=== PATIENT | male | born 1970 | race Caucasian/White ===

== ENCOUNTER → 2018-01-25 | Outpatient (CLI) | payer BC, OTHER ==
[~2018-01-25] VITALS: Ht 167.6 cm; Wt 86.2 kg
[~2018-01-25] MED LIST: ALEVE220 MG PO; AMITRIPTYLINE H25 M2 PO; APAP/CODEINE ELI5 M1 OR; CYMBALTA30 MG PO; IMITREX 50 MG T50 MG PO; LEVAQUIN 500 M500 MG PO; MOBIC15 MG PO; PERCOCET 10-321 EAC1 PO; PERCOCET 10-321 EACH PO; PERCOCET 2.5-31 EACH PO; THERA-M CAPLET1 EACH OR; ZOFRAN ODT4 MG PO; ZYRTEC10 M2 OR; ZYRTEC10 M5 PO
--- NOTE | ~2018-01-25 | HPC ---
[facility] [address] [place] [address] PAIN MANAGEMENT CONSULTATION Name: MELVINRANDALL Cherry Room #: REG [facility] Urmila#: [id number] Admission: 01/25/18 Attend Phys: Enrico Mcguire MD Discharge: Date of : 66 Report #: [id number] THIS REPORT FOR: //name// CC: Enrico Keyes DATE OF SERVICE: 01/25/2018 CHIEF COMPLAINT: Back pain. HISTORY OF PRESENT ILLNESS: The patient is a 47-year-old gentleman who has been referred to the pain clinic for evaluation. The patient has a history of back pain. States that he was injured in 2005. He fell off a horse. As a result of that, he had significant damage to the T12-L2 area of his back. He was seen by a neurosurgeon. He underwent stabilization of his spine. Does have a long incision on the left side. Notes that this area is very sensitive to touch. He was recently started on Cymbalta. He feels that medication has made some major improvement in his pain. He has required less opioid medication. He has been able to do more. States that often times when his pain is quite problematic those around him are able to see that he is in pain. He is less functional. He is a ____. He has difficulty sleeping. States that his sleep is limited. Generally sleeps about 2 hours before he is awakened because of the pain and discomfort. He has to sleep on his side. He is unable to sleep on his back. He continues to stretch and do activities as much as possible. ALLERGIES: No known drug allergies. MEDICATIONS: Zyrtec 10 mg, Percocet 10/325 approximately 1 p.o. t.i.d., Naprosyn 220 mg, Cymbalta 30 mg daily, and Imitrex 50 mg for migraine headaches. PAST MEDICAL HISTORY: Midline low back pain without sciatica. Persistent numbness in both legs and migraine headaches. PAST SURGICAL HISTORY: T12-L2 fusion through thoracolumbar approach in 2005 at Replaced by [facility]. The patient suffered a L1 burst fracture. REVIEW OF SYSTEMS: Generally good health, decreased appetite, fatigue, weakness, headaches, recurrent headaches, lightheadedness, dizziness, numbness and tingling sensation in the lateral area, where the incision is. LABORATORY DATA: No new laboratory values are available at the time of our interview. PAIN CLINIC ASSESSMENT/PQRS: 1. The patient has not been treated for rheumatoid arthritis or osteoarthritis. 2. Height 5 feet 6 inches, weight 190 pounds, BMI is 30.7. [place] [address] PAIN MANAGEMENT CONSULTATION Name: MELVINRANDALL Dilip Room #: REG [facility]#: [id number] Admission: 01/25/18 Attend Phys: Enrico Mcguire MD Discharge: Date of : 66 Report #: [id number] 3. Vital signs: Blood pressure 128/77, pulse 80, respiratory rate 16, room air saturation 98%. 4. Pain intensity, 8/10. 5. Fall risk. The patient has not fallen in the last 3 months. 6. Blood thinner. The patient is not on a blood thinning medication. 7. History of hypertension. The patient has not been treated for hypertension. 8. Opioid therapy. The patient has been using opioid medications for some time since the original injury in 2007. 9. Risk assessment tool, low for opioid use. 10. Functional assessment tool 59/70. 11. Recreational drug use. The patient denies use of recreational drugs. 12. Tobacco: The patient has never smoked. 13. Alcohol: The patient denies use of alcoholic beverages. PHYSICAL EXAMINATION: GENERAL: The patient is a well-developed, well-nourished white male. He appears his stated age. He is alert and oriented x 3. Affect is appropriate. Speech is fluent. HEENT: Normocephalic, atraumatic. Extraocular eye muscles intact. Sclerae nonicteric. Mucous membranes are moist. NECK: Without adenopathy or JVD. MUSCULOSKELETAL: Upper extremity muscle strength is judged to be 5/5 for the major muscle groups. Deep tendon reflexes +2 for the biceps, trace for the brachioradialis, and +1 for the triceps. The patient has a well-healed scar on the left side. Is hypersensitive to light touch. Lower extremity muscle strength is judged to be 5/5 for the major muscle groups in the lower extremity. The patient is able to stand on his toes and walk on his heels. Notes increased pain with left rotation, right rotation, forward bending to about 90 degrees, and lumbar extension. These can all increase the pain and discomfort in the left lower side. Deep tendon reflexes are +2 at the knees bilaterally and +1 at the ankles. IMPRESSION: 1. Chronic pain, left lateral thoracic area after a burst fracture at L1 and an incision along the left lateral thoracic/abdominal wall, which is hypersensitive to touch. 2. Midline low back pain without sciatica. 3. Persistent numbness in both legs. 4. Migraine headaches. RECOMMENDATIONS: We discussed treatment options with the patient. He feels that the use of Cymbalta over the last 2 weeks have been beneficial. We explained that Elavil medications can sometimes be helpful with neuropathic pain. The patient is having difficulty sleeping at night. We would recommend that he try 25 mg at bedtime to note its efficacy in promoting sleep as well as contributing to helping decrease the pain. The patient takes a nonsteroidal [facility] [address] [place] [address] PAIN MANAGEMENT CONSULTATION Name: RANDALL CHARLES Room #: REG [facility]#: [id number] Admission: 01/25/18 Attend Phys: Enrico Mcguire MD Discharge: Date of : 66 Report #: [id number] anti-inflammatory medication. I think he could glean benefit from using Mobic. This is a once a day medication. A script for this medication has been written. He will try these medications. He will return to the pain clinic as needed. A script for oxycodone 10 mg 1 p.o. t.i.d. have been written. We would like to thank you for letting us participate in his care. We hope he continues to improve. By: [id number] Enrico Mcguire MD /nt
[2018-01-25 08:32] VITALS: BP 128/77
== END ==
LOC: PAIN 06:58
DX: M54.5 Low back pain (principal); G89.29 Other chronic pain; R20.0 Anesthesia of skin; G43.909 Migraine, unspecified, not intractable, without status migrainosus

== ENCOUNTER → 2018-09-25 | Outpatient (CLI) | payer BC, OTHER ==
[~2018-09-25] VITALS: Ht 167.6 cm; Wt 82.6 kg
[2018-09-25 13:25] VITALS: BP 142/89
[2018-09-25 14:04] LABS: ABSOLUTE NEUTROPHILS 3.3 thou/uL (1.4-8.2); BASOPHILS 0.8 % (0.0-2.0); HEMATOCRIT 40.8 % (42.0-52.0); HEMOGLOBIN 13.8 gm/dL (14.0-18.0); MCH 28.2 pg (26.0-34.0); MCHC 33.7 g/dL (28.0-37.0); MCV 83.5 fL (80.0-100.0); MONOCYTES 9.1 % (1.0-8.0); PLATELET COUNT 144 thou/uL (150-400); POLYS 55.1 % (36.0-66.0); RBC 4.88 mil/uL (4.50-6.00); RDW 13.7 % (10.5-14.5); WBC 5.9 thou/uL (4.0-11.0)
[2018-09-25 14:16] LABS: ALBUMIN 3.8 g/dL (3.4-5.0); CREATININE 1.2 mg/dL (0.7-1.3); POTASSIUM 4.2 mmol/L (3.5-5.1); TOTAL BILIRUBIN 0.7 mg/dL (<0.1-1.0); TOTAL PROTEIN 7.3 g/dL (6.4-8.2)
--- NOTE | 2018-09-25 14:57 | NUR ---
IN FOR 1 LITER NORMAL SALINE IV FOR DEHYDRATION RELATED TO ONE WEEK OF NAUSEA AND VOMITING, REFRACTORY TO [facility]. CT SCAN OF ABD DONE AND THEN CAME HERE FOR INFUSION. ADMISSION HISTORY AND ASSESSMENT COMPLETED. INFUSED NS OVER 1 HOUR AND TOLERATED WELL. REMOVED IV AND DISMISSED IN STABLE CONDITION. FAXED LAB RESULTS TO DR. SEALS.
== END ==
LOC: CAT 11:02
PROVIDERS: Family Medicine
DX: E86.0 Dehydration (principal); R11.2 Nausea with vomiting, unspecified; R10.9 Unspecified abdominal pain

== ENCOUNTER → 2018-10-27 | Outpatient (CLI) | payer BC, OTHER ==
[~2018-10-27] VITALS: Ht 167.6 cm; Wt 85.8 kg
[~2018-10-27] MED LIST changes: +NEURONTIN 300300 M1 PO; +OXYCODONE HCL10 MG PO
--- NOTE | ~2018-10-27 | HPC ---
[facility] [address] [place] [address] PAIN MANAGEMENT CONSULTATION Name: RANDALL CHARLES Room #: REG [facility] Urmila#: [id number] Admission: 10/27/18 Attend Phys: Enrico Mcguire MD Discharge: Date of : 66 Report #: [id number] THIS REPORT FOR: //name// CC: Enrico Keyes DATE OF SERVICE: 10/27/2018 CHIEF COMPLAINT: Back pain. HISTORY: The patient is a 48-year-old gentleman, who has been followed in the pain clinic. 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 He was injured after falling off a horse in 2005. He ruptured/injured his L1 vertebrae. He has undergone surgery and had fusion of the thoracic area T12 through L2. This was because of a burst fracture at L1. He continues to work. Pain has increased. He has been using hydrocodone 10 mg tablets, needed to take about 8 tablets per day. He is having some difficulty with sleeping. He was reevaluated at [facility]. His surgeon does not feel that there is any need for additional surgery. CURRENT MEDICATIONS: Oxycodone 10/325 one p.o. q.4-6 hours, Zyrtec 10 mg daily, Naprosyn 220 mg, Cymbalta 30 mg to help with depression, and Imitrex 50 mg p.r.n. headaches. ALLERGIES: No known drug allergies. PAIN CLINIC ASSESSMENT AND PQRS: 1. The patient is not being treated for rheumatoid arthritis or osteoarthritis. 2. Pain intensity is 8/10. 3. Fall history: The patient has not fallen in the last 3 months. 4. Blood thinner. The patient is not on a blood thinning medication. 5. Hypertension. The patient ____ treated for hypertension. 6. Opioids. The patient receives medications through his primary physician. 7. Risk assessment tool, low for opioid use. 8. Functional assessment tool, 59/70. 9. Recreational drug use. The patient denies. 10. Tobacco: The patient has never smoked. 11. Alcohol: The patient denies use of alcoholic beverages. PHYSICAL EXAMINATION: GENERAL: The patient is a well-developed, well-nourished white male. He appears his stated age. He is alert and oriented x 3. His affect is appropriate. Speech is fluent. Height is 5 feet 6 inches, weight is 189 pounds, and BMI is 30. VITAL SIGNS: Blood pressure is 142/88, pulse is 86, respiratory rate is 16, and room air saturation 97%. [place] [address] PAIN MANAGEMENT CONSULTATION Name: RANDALL CHARLES Room #: REG [facility]#: [id number] Admission: 10/27/18 Attend Phys: Enrico Mcguire MD Discharge: Date of : 66 Report #: [id number] HEENT: Normocephalic, atraumatic. Extraocular eye muscles intact. Sclerae nonicteric. Mucous membranes are moist. NECK: Without adenopathy or JVD. MUSCULOSKELETAL: Upper muscle strength is judged to be 5/5 for the major muscle groups in the upper extremity. The patient has a well-healed scar on the left lateral thoracic area. He notes pain and discomfort with palpation near the left posterior superior iliac spine area. There are no ____ trigger points noted on the right. Palpation in the left posterior superior iliac spine near the gluteus marquis and latissimus dorsi does reproduce a component of his pain. The patient has some pain and discomfort in the midline area at L4-L5 and near the L5-S1 areas as well. The patient moves in a very guarded way. Some limitation of flexion, extension, and rotation were noted. Lower extremity muscle strength is judged to be 5/5 for the major muscle groups in the lower extremity. IMPRESSION: 1. Chronic pain in the left lateral thoracic area and status post burst fracture at L1, treated with surgery in 2005. 2. Midline pain, low back area without sciatica. Palpation near the left posterior superior iliac spine area did reproduce a trigger point in this area. 3. Migraine headaches. 4. History of persistent numbness in legs. RECOMMENDATIONS: We have discussed treatment options with the patient. At this juncture, we will inject the trigger point area. The patient does move in a very guarded fashion. He is unable to bend and twist without increased low back pain. We would recommend that the patient undergo a trigger point injection to the affected area today. We also recommend that he undergo physical therapy. He has not had physical therapy for this problem. We will continue with his current medications of Percocet and Naprosyn, the patient has not used. I think that a trial of Neurontin would be helpful. We will have the patient start with Neurontin and increase it to a level of 900 1 p.o. t.i.d. We will continue to elevate the medication to a level of at least 1800. Oftentimes, some patients will not show benefit before the level of 1800 and possibly 2400 before one would say that it was a failure. The patient has been given a script for gabapentin 300 mg 1 p.o. t.i.d. He will call us if he has any concerns. He agrees to proceed with a trigger point injection. We discussed treatment options with the patient. Possible complications which could include infection, worsening of pain, increased muscle soreness, and no improvement in pain were discussed and the patient elects to proceed. PROCEDURE NOTE: The patient was placed in the sitting position. He was perpendicular to the bed. A chair was placed under his feet for stability. His back was sterilely prepped with a chlorhexidine solution and allowed to dry. A 25-gauge needle was then advanced into the area of the left posterior superior [address] [address] PAIN MANAGEMENT CONSULTATION Name: RANDALL CHARLES Room #: REG [facility]#: [id number] Admission: 10/27/18 Attend Phys: Enrico Mcguire MD Discharge: Date of : 66 Report #: [id number] iliac spine near the gluteus marquis and latissimus dorsi. The patient states that this did reproduce a component of his pain. A total of 80 mg of Depo-Medrol with 8 mL 0.5% bupivacaine was injected. The patient tolerated the procedure well. There were no complications. He remained in the pain clinic for an appropriate amount of time. He will follow up in the future as needed. 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 We would like to thank you for letting us to participate in his care. By: [id number] Enrico Mcguire MD /PMT
[2018-10-27 08:13] VITALS: BP 142/88
--- NOTE | 2018-10-27 08:23 | NUR ---
Pain Clinic Assessment: 1. History of Osteoarthritis: Not Applicable History of Rheumatoid Arthritis: Not Applicable 2. Height: 5 ft. 6 in. 167.6 cm. Weight: 189.2 lb. oz. 85.821 kg. Patient's BMI: 30.6 3. Vital Signs: BP: 142/88 Pulse: 86 Resp: 16 Temp: 02 Sat: 97 ECG Mon: 4. Pain Intensity: 8 5. Fall Risk: Dizziness: N Needs help standing or walking: N Fallen in the last 3 months: N Fall risk comments: 6. Patient on Blood Thinner: None 7. History of Hypertension: N 8. Opioid Therapy greater than 6 weeks: Y Opiate Contract Signed: 01/25/18 9. Risk Assessment Tool Provided: LOW 10. Functional Assessment Tool: 59/70 11. Recreational Drug Use: Never Drug Type: Tobacco Use: Never Smoker Tobacco Type: Amount or Packs/day: How Many Years: Alcohol Use: No Frequency: Quant:
== END | disposition home or self-care (01) ==
LOC: PAIN 06:38
DX: M79.18 Myalgia, other site (principal); G89.29 Other chronic pain; M54.5 Low back pain; I10 Essential (primary) hypertension; G43.909 Migraine, unspecified, not intractable, without status migrainosus; Z98.890 Other specified postprocedural states; Z79.899 Other long term (current) drug therapy; Z79.891 Long term (current) use of opiate analgesic

== ENCOUNTER → 2018-12-27 | Outpatient (CLI) | payer BC, OTHER ==
[~2018-12-27] VITALS: Ht 167.6 cm; Wt 89.2 kg
[~2018-12-27] MED LIST changes: +NEURONTIN300 MG PO
[2018-12-27 13:57] VITALS: BP 138/86
--- NOTE | 2018-12-27 14:14 | NUR ---
Pain Clinic Assessment: 1. History of Osteoarthritis: Not Applicable History of Rheumatoid Arthritis: Not Applicable 2. Height: 5 ft. 6 in. 167.6 cm. Weight: 196.6 lb. oz. 89.177 kg. Patient's BMI: 31.7 3. Vital Signs: BP: 138/86 Pulse: 63 Resp: 14 Temp: 02 Sat: 100 ECG Mon: 4. Pain Intensity: 8 5. Fall Risk: Dizziness: N Needs help standing or walking: N Fallen in the last 3 months: N Fall risk comments: 6. Patient on Blood Thinner: None 7. History of Hypertension: N 8. Opioid Therapy greater than 6 weeks: Y Opiate Contract Signed: 01/25/18 9. Risk Assessment Tool Provided: LOW 10. Functional Assessment Tool: / 11. Recreational Drug Use: Never Drug Type: Tobacco Use: Never Smoker Tobacco Type: Amount or Packs/day: How Many Years: Alcohol Use: No Frequency: Quant:
--- NOTE | 2019-01-10 09:44 | HPC ---
[facility] [address] [place] [address] PAIN MANAGEMENT CONSULTATION Name: RANDALL CHARLES Room #: REG [facility] Urmila#: [id number] Admission: 12/27/18 Attend Phys: Enrico Mcguire MD Discharge: Date of : 66 Report #: [id number] THIS REPORT FOR: //name// CC: Enrico Keyes DATE OF SERVICE: 12/27/2018 CHIEF COMPLAINT: Back pain. HISTORY: The patient is a 48-year-old gentleman who has been seen in the pain clinic because of chronic back pain. He has continued to have some pain and discomfort in his back. As you may recall, he has had a rupture of the L1 vertebral area. This was back in 2005. He fell from a horse. 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 Because of the burst fracture at L1, he continues to have pain, which is problematic. Finds that injection in the past was beneficial. He has returned today because of increasing pain and discomfort. He rates it as an 8/10. Still has pain when standing, walking, sitting, lying down and sometimes when he gets up. He feels that his medications are helpful. Rest is helpful. Cold laser therapy has been helpful in the past. No additional surgery is contemplated. ALLERGIES: No known drug allergies. CURRENT MEDICATIONS: Oxycodone 10/325 one p.o. every 4-6 hours, Zyrtec 10 mg daily, Naprosyn 220 mg, Cymbalta 30 mg to help with depression, Imitrex 50 mg p.r.n. headaches. PAIN CLINIC ASSESSMENT/PQRS: 1. The patient is not being treated for rheumatoid arthritis or osteoarthritis. 2. Height 5 feet 6 inches, weight 196 pounds, BMI is 31.7. 3. Vital Signs: Blood pressure 138/86, pulse 63, respiratory rate 14, room air saturation is 100%. 4. Pain intensity 8/10. 5. Fall history: The patient has not fallen in the last 3 months. 6. Blood thinner. The patient is not on a blood thinning medication. 7. Hypertension. The patient is not being treated for hypertension. 8. Opioids greater than 6 weeks. The patient receives medications from one source. 9. Risk assessment tool for opioids low. 10. Functional assessment tool 59 of 70. 11. Recreational drug use. The patient denies. 12. Tobacco: The patient has never smoked. 13. Alcohol. The patient denies frequent use of alcoholic beverages. PHYSICAL EXAMINATION: [facility] [address] [place] [address] PAIN MANAGEMENT CONSULTATION Name: RANDALL CHARLES Room #: REG [facility]#: [id number] Admission: 12/27/18 Attend Phys: Enrico Mcguire MD Discharge: Date of : 66 Report #: [id number] GENERAL: The patient is a well-developed, well-nourished white male. Appears his stated age. He is alert and oriented x 3. His affect is appropriate. Speech is fluent. HEAD, EYES, EARS, NOSE, AND THROAT: Normocephalic, atraumatic. Extraocular eye muscles intact. Sclerae nonicteric. Mucous membranes are moist. NECK: Without adenopathy or JVD. HEART: Regular rate. CHEST: Clear to auscultation. ABDOMEN: Nontender. Bowel sounds present. EXTREMITIES: Upper extremity muscle strength judged to be 5/5 for the major muscle groups in the upper extremity. The patient with a well-healed scar in the lateral side of his left thoracic area. MUSCULOSKELETAL: The patient has pain and discomfort in the left and right posterior superior iliac spine areas. Palpation in this area does show signs of trigger points in these areas. The patient notes some increased limitation of flexion, extension, rotation. Muscle strength to the lower extremities, judged to be 4-5/5. IMPRESSION: 1. Chronic pain. Left lateral thoracic area, status post burst fracture at L2 treated with surgery in 2005. 2. Midline pain, left low back area without sciatica near the left and right posterior superior iliac spine area with palpation of trigger points in this area. 3. Migraine headaches. 4. History of persistent leg numbness. RECOMMENDATIONS: We discussed treatment options with the patient. Risks and benefits of trigger point injections were discussed. Possible complications of the procedure, which could include an increase in muscle pain, bleeding, infection, nerve damage were discussed. The patient feels the gabapentin medication continues to be helpful, we will renew his gabapentin 300 mg 1 p.o. t.i.d. The patient will also continue with oxycodone. He will take 10 mg 1 p.o. t.i.d. The patient is aware that opioid medications can be problematic in certain people. He appears to be taken his medications as prescribed. We discussed the injection of the trigger point areas. The patient elects to proceed. PROCEDURE NOTE: The patient was placed in the sitting position. His back was sterilely prepped with a Betadine solution. A trigger point was noted near the left posterior superior iliac spine area. This was near the gluteus marquis and latissimus dorsi. Palpation reproduces pain. A total of 80 mg triamcinolone was injected. The patient tolerated the procedure well. There were no complications. A 25-gauge needle had been advanced into the area of the discomfort. Aspiration was negative. A total of 8 mL of 0.5% bupivacaine and 80 mg triamcinolone was injected. The patient's pain decreased to 0 at the time [facility] [address] [place] [address] PAIN MANAGEMENT CONSULTATION Name: RANDALL CHARLES Room #: REG [facility] Danica.#: [id number] Admission: 12/27/18 Attend Phys: Enrico Mcguire MD Discharge: Date of : 66 Report #: [id number] of discharge. He will follow up in the future as needed. A script for his medications has been rewritten. He will call if he has any concerns. We would like to thank you for letting us to participate in his care. We hope he continues to improve. <ELECTRONICALLY SIGNED> By: Enrico Mcguire MD 01/10/19 [id number] Enrico Mcguire MD /CHRIS
== END | disposition home or self-care (01) ==
LOC: PAIN 07:09
DX: M54.9 Dorsalgia, unspecified (principal); M79.18 Myalgia, other site; G89.29 Other chronic pain; G43.909 Migraine, unspecified, not intractable, without status migrainosus; Z79.891 Long term (current) use of opiate analgesic; Z98.890 Other specified postprocedural states; Z79.899 Other long term (current) drug therapy

== ENCOUNTER → 2019-06-06 | Outpatient (CLI) | payer BC, OTHER ==
[~2019-06-06] VITALS: Ht 167.6 cm; Wt 87.3 kg
[~2019-06-06] MED LIST changes: +MS CONTIN15 MG PO; +NEURONTIN 400400 M1 PO
[2019-06-06 08:20] VITALS: BP 134/94
--- NOTE | 2019-06-06 08:40 | NUR ---
Pain Clinic Assessment: 1. History of Osteoarthritis: NONE History of Rheumatoid Arthritis: NONE 2. Height: 5 ft. 6 in. 167.6 cm. Weight: 192.4 lb. oz. 87.272 kg. Patient's BMI: 31.1 3. Vital Signs: BP: 134/94 Pulse: 89 Resp: 14 Temp: 02 Sat: 100 ECG Mon: 4. Pain Intensity: 3 5. Fall Risk: Dizziness: N Needs help standing or walking: N Fallen in the last 3 months: N Fall risk comments: 6. Patient on Blood Thinner: None 7. History of Hypertension: N 8. Opioid Therapy greater than 6 weeks: Y Opiate Contract Signed: 01/25/18 9. Risk Assessment Tool Provided: LOW 10. Functional Assessment Tool: 59/ 11. Recreational Drug Use: Never Drug Type: Tobacco Use: Never Smoker Tobacco Type: Amount or Packs/day: How Many Years: Alcohol Use: No Frequency: Quant:
--- NOTE | 2019-06-15 08:21 | HPC ---
[facility] [place] [address] [place] [address] PAIN MANAGEMENT CONSULTATION Name: RANDALL CHARLES Room #: REG [facility]#: [id number] Admission: 06/06/19 Attend Phys: Enrico Mcguire MD Discharge: Date of : 66 Report #: [id number] THIS REPORT FOR: cc: Jose L Keyes MD, Neal A. MD Brown,Enrico Schilling MD ~ CC: Enrico Keyes DATE OF SERVICE: 06/06/2019 CHIEF COMPLAINT: Increased back pain. HISTORY: The patient is a 49-year-old gentleman who has been followed in the Pain Clinic. As you may recall, he continues to have chronic back pain. He ruptured his L1 vertebral area in 2005. He fell from a horse. Continues to have pain and discomfort as a result of that injury. 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 He has had injections in the L1 area and found that beneficial. His pain continues to be quite consuming. States that he is contemplating spinal cord stimulation. He rates his pain as a 3/10 today. 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 Because of the amount of energy in that practice, he notes sometimes that his pain becomes more problematic. Medications don't provide as much relief. He has returned to the Pain Clinic for an injection in the back area as well as the renewal of his medications. ALLERGIES: No known drug allergies. CURRENT MEDICATIONS: Oxycodone 10 mg 1 p.o. t.i.d., Zyrtec 10 mg daily, Naprosyn 220 mg, Cymbalta 30 mg to help with depression and Imitrex 50 mg p.r.n., migraine headaches. PAIN CLINIC ASSESSMENT/PQRS: 1. The patient is not being treated for rheumatoid arthritis or osteoarthritis. 2. Height 5 feet 6 inches, weight 192 pounds, BMI is 31.3. 3. Vital signs: Blood pressure 134/94, pulse 89, respiratory rate 14, room air saturation is 100. 4. Pain intensity, 05/28. 5. Fall history: The patient has not fallen in the last 3 months. 6. Blood thinner. The patient is not on a blood thinning medication. 7. Hypertension. The patient is being treated for hypertension. 8. Opioids greater than 6 weeks. The patient received medication from one source the Pain Clinic. 9. Risk assessment tool, low for opioid use. 10. Functional assessment tool, 59/70. 11. Recreational drug use: [place] [address] PAIN MANAGEMENT CONSULTATION Name: RANDALL CHARLES Room #: REG [facility]#: [id number] Admission: 06/06/19 Attend Phys: Enrico Mcguire MD Discharge: Date of : 66 Report #: [id number] 12. Tobacco: The patient has never smoked. 13. Alcohol. The patient denies use of alcoholic beverages. PHYSICAL EXAMINATION: GENERAL: The patient is a well-developed, well-nourished white male. Appears his stated age. He is alert and oriented x 3. His affect is appropriate. Speech is fluent. HEENT: Normocephalic, atraumatic. Extraocular eye muscles intact. Sclerae nonicteric. Mucous membranes are moist. NECK: Without adenopathy or JVD. HEART: Regular rate. CHEST: Clear to auscultation. ABDOMEN: Nontender, low back area. MUSCULOSKELETAL: The patient has pain and discomfort, which he rates as a 6-7/10 with palpation at the low back area midline to left lateral paravertebral area at approximately L2-L3. The patient notes some decreased limited of flexion, extension and rotation in this area. EXTREMITIES: Lower extremity muscle strength judged to be 5-/5 for the lower extremity. Palpation in the area of the L2-L3 paraspinous in the midline area reproduces a component of his pain and discomfort. IMPRESSION: 1. Chronic pain, left lateral thoracic area, status post burst fracture at L2, treated with surgery in 2005. 2. Midline pain, left lower back area with trigger points in the L2-L3 paraspinous and mid spinal area. 3. Migraine headaches. 4. History of persistent leg numbness. RECOMMENDATIONS: We discussed treatment options with the patient. At this juncture, we will proceed with a trigger point injection to the affected area in the low back area. This in the past was beneficial. He would like to consider injection and proceed with the injection today. Risks and benefits of an injection, which could include but are not limited to infection, worsening pain, no improvement in pain, nerve damage, bleeding were discussed and the patient elects to proceed. The patient will continue with oxycodone 10 mg 1 p.o. t.i.d. He states that his pain continues to be problematic. At the end of some days, he finds it quite difficult to continue with any activity because of the pain. He will be provided with oxycodone 10 mg 1 p.o. t.i.d. The patient will start morphine sulfate, MS Contin 15 mg. We explained to the patient that this medication is a slow delivery of pain medication and probably find that it is more beneficial. He will take the 50 mg of morphine in the morning. Hopefully, this will give him more pain and relief during the course of the day with less up and down fluctuations in the blood from use of OxyContin. He is aware that opioid medications can become problematic for certain patients. He does not feel as though he is addicted to these medications. He has taken the medication [facility] [address] [place] [address] PAIN MANAGEMENT CONSULTATION Name: RANDALL CHARLES Room #: REG [facility]#: [id number] Admission: 06/06/19 Attend Phys: Enrico Mcguire MD Discharge: Date of : 66 Report #: [id number] as prescribed. He has not shown any signs of addiction. The patient will undergo a trigger point injection at this juncture. We will also have the patient try gabapentin at 400 mg t.i.d. We explained that sometimes 1800 mg of gabapentin might be necessary before some people find an improvement in the pain. He elects to proceed with the injection. PROCEDURE NOTE: The patient was taken to the procedure area. He was then assisted in getting on the examination table. He sat perpendicular to the table. A stool was placed under his feet. The patient leaned forward as though he was going to tie his shoe. Palpation at approximately L2-L3 were noted a trigger point. Palpation in the midline causes a reproduction of pain and discomfort. Palpation to the left and the paraspinous muscles also caused pain and discomfort. He has area of his back was sterilely prepped with a chlorhexidine solution. A 25-gauge needle was then advanced into the area of the midline at the L2-L3 area and in the left paraspinous area. The patient noted that this did reproduce his pain and discomfort. A total of 80 mg triamcinolone with 12 mL of 0.5% bupivacaine was injected. The patient tolerated the procedure well. He remained in the Pain Clinic for an appropriate amount of time. We may consider injections in the area of the facets around his trigger points at the next visit. We would like to thank you for letting us participate in his care. We hope he continues to improve. <ELECTRONICALLY SIGNED> By: Enrico Mcguire MD 06/15/19 0821 [id number] Enrico Mcguire MD /nt
== END | disposition home or self-care (01) ==
LOC: PAIN 06:38
DX: M79.18 Myalgia, other site (principal); G89.29 Other chronic pain; M54.6 Pain in thoracic spine; G43.909 Migraine, unspecified, not intractable, without status migrainosus; Z98.890 Other specified postprocedural states; Z79.899 Other long term (current) drug therapy; Z79.891 Long term (current) use of opiate analgesic

== ENCOUNTER → 2019-07-04 | Outpatient (CLI) | payer BC, OTHER ==
[~2019-07-04] VITALS: Ht 165.1 cm; Wt 87.2 kg
[~2019-07-04] MED LIST changes: +AMITRIPTYLINE H10 M3 PO; +ZANAFLEX4 M2 PO
[2019-07-04 08:28] VITALS: BP 129/86
--- NOTE | 2019-07-04 08:39 | NUR ---
Pain Clinic Assessment: 1. History of Osteoarthritis: NONE History of Rheumatoid Arthritis: NONE 2. Height: 5 ft. 5 in. 165.1 cm. Weight: 192.2 lb. oz. 87.181 kg. Patient's BMI: 32.0 3. Vital Signs: BP: 129/86 Pulse: 69 Resp: 14 Temp: 02 Sat: 100 ECG Mon: 4. Pain Intensity: 3 5. Fall Risk: Dizziness: N Needs help standing or walking: N Fallen in the last 3 months: N Fall risk comments: 6. Patient on Blood Thinner: None 7. History of Hypertension: N 8. Opioid Therapy greater than 6 weeks: Y Opiate Contract Signed: 01/25/18 9. Risk Assessment Tool Provided: LOW 10. Functional Assessment Tool: 59/ 11. Recreational Drug Use: Never Drug Type: Tobacco Use: Never Smoker Tobacco Type: Amount or Packs/day: How Many Years: Alcohol Use: No Frequency: Quant:
--- NOTE | 2019-07-18 08:03 | HPC ---
[facility] [address] [place] [address] PAIN MANAGEMENT CONSULTATION Name: RANDALL CHARLES [id number] Admission: 07/04/19 Attend Phys: Enrico Mcguire MD Discharge: Date of : 66 Report #: [id number] THIS REPORT FOR: cc: Jose L Keyes MD, Neal A. MD Brown, N. Wayne MD ~ CC: Enrico Keyes MD DATE OF SERVICE: 07/04/2019 CHIEF COMPLAINT: Pain in the low back area. HISTORY: The patient is a 49-year-old gentleman who has been followed in the pain clinic. 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 Continues to have his pain, which can be problematic. He has noticed a worsening of his pain and discomfort at this point. He feels that his medications have been helpful. He has returned today with the hopes of having this medication renewed. Describes the pain as constant, steady, and aching. It affects his ability to stand, walks, and is exacerbated by sitting. Pain improves somewhat when he rests as well as when he uses pain medication. He has used cold laser therapy. He has not had any problems with his medication and has return with the hopes of having them renewed. They are not causing any problems with his sensorium. He remains clear. He is able to think without confusion. ALLERGIES: No known drug allergies. CURRENT MEDICATIONS: Oxycodone 10 mg 1 p.o. t.i.d., Zyrtec 10 mg daily, Naprosyn 220 mg, Cymbalta 30 mg to help with depression, and Imitrex 50 mg p.r.n., migraine headaches. PAIN CLINIC ASSESSMENT/PQRS: 1. The patient is not being treated for rheumatoid arthritis or osteoarthritis. 2. Height 5 feet 5 inches, weight 192 pounds, BMI 32.2. 3. Vital Signs: Blood pressure 129/86, pulse 69, respiratory rate 14, room air saturation is 100%. 4. Pain intensity 2-3 out of10 depending on his activity. 5. Fall risk. The patient has not fallen in the last 3 months. 6. Blood thinner. The patient is not on a blood thinning medication. 7. Hypertension. The patient is not being treated for hypertension. 8. Opioids greater than 6 weeks. The patient receives medications from the pain clinic. 9. Risk assessment tool, low for opioid. 10. Functional assessment tool, 59/70[place] [address] PAIN MANAGEMENT CONSULTATION Name: RANDALL CHARLES Room #: REG [facility]#: [id number] Admission: 07/04/19 Attend Phys: Enrico Mcguire MD Discharge: Date of : 66 Report #: [id number] 11. Recreational drug use. The patient denies. 12. Tobacco: The patient denies. 13. Alcohol. The patient denies frequent use of alcoholic beverages. PHYSICAL EXAMINATION: GENERAL: The patient is a well-developed, well-nourished white male. Appears his stated age. He is alert and oriented x 3. His affect is appropriate. Speech is fluent. HEENT: Normocephalic, atraumatic. Extraocular eye muscles intact. Sclerae nonicteric. Mucous membranes are moist. NECK: Without adenopathy or JVD. HEART: Regular rate. CHEST: Clear to auscultation. ABDOMEN: Nontender. The patient has pain and discomfort in the low back area. MUSCULOSKELETAL: The patient has pain and discomfort, which is in the area of the L2-L3 in the low back area and in the left lateral paravertebral space. Notes some decreased/limited movement with flexion and extension as well as with increased discomfort with rotation. EXTREMITIES: Upper extremity muscle strength 5/5 for the major muscle groups. Lower extremity muscle strength generally 5-/5. IMPRESSION: 1. Chronic pain. Left lateral thoracic area, status post burst fracture of L2, treated with surgery in 2005. 2. Midline pain, left lower back in the L2-L3 area and in the paraspinous muscle areas. 3. Migraine headaches. 4. Persistent leg numbness. RECOMMENDATIONS: We discussed treatment options with the patient. At this juncture, we will continue with the patient's medication. He feels that the medicines are helpful. They are not causing any problems. We will continue with the meloxicam 15 mg 1 p.o. daily. The patient will also continue with morphine and MS Contin 15 mg 1 p.o. He will also use OxyIR for immediate release of the medication. He will continue with gabapentin 400 mg 1 p.o. t.i.d. The patient will also continue with his Zyrtec 10 mg. He will not take the Naprosyn and meloxicam at the same time. He will also continue with his Imitrex p.r.n. for migraine headaches. We would like to thank you for letting us participate in his care. We hope he continues to improve. <ELECTRONICALLY SIGNED> By: Enrico Mcguire MD 07/18/19 0803 [id number] Enrico Mcguire MD /PMT
== END ==
LOC: PAIN 08:18
DX: M54.5 Low back pain (principal); G43.909 Migraine, unspecified, not intractable, without status migrainosus; R20.2 Paresthesia of skin

== ENCOUNTER → 2019-10-31 | Outpatient (CLI) | payer BC, OTHER ==
[~2019-10-31] VITALS: Ht 165.1 cm; Wt 91.7 kg
[~2019-10-31] MED LIST changes: +BACLOFEN 10MG T10 MG PO; +EMGALITY120 MG/1 M SUBQ
[2019-10-31 08:12] VITALS: BP 126/84
--- NOTE | 2019-10-31 08:23 | NUR ---
Pain Clinic Assessment: 1. History of Osteoarthritis: NONE History of Rheumatoid Arthritis: NONE 2. Height: 5 ft. 5 in. 165.1 cm. Weight: 202.2 lb. oz. 91.717 kg. Patient's BMI: 33.6 3. Vital Signs: BP: 126/84 Pulse: 71 Resp: 14 Temp: 02 Sat: 97 ECG Mon: 4. Pain Intensity: 3 5. Fall Risk: Dizziness: N Needs help standing or walking: N Fallen in the last 3 months: N Fall risk comments: 6. Patient on Blood Thinner: None 7. History of Hypertension: N 8. Opioid Therapy greater than 6 weeks: Y Opiate Contract Signed: 01/25/18 9. Risk Assessment Tool Provided: LOW 10. Functional Assessment Tool: / 11. Recreational Drug Use: Never Drug Type: Tobacco Use: Never Smoker Tobacco Type: Amount or Packs/day: How Many Years: Alcohol Use: No Frequency: Quant:
--- NOTE | 2019-11-15 13:25 | HPC ---
[facility] [address] [place] [address] PAIN MANAGEMENT CONSULTATION Name: RANDALL CHARLES Room #: REG [facility].#: [id number] Admission: 10/31/19 Attend Phys: Enrico Mcguire MD Discharge: Date of : 66 Report #: [id number] THIS REPORT FOR: cc: Jose L Keyes MD, Neal A. MD Brown,Enrico Schilling MD ~ CC: Enrico Keyes DATE OF SERVICE: 10/31/2019 CHIEF COMPLAINT: "Pain medicine is helpful, but I am still having discomfort." HISTORY: The patient is a 49-year-old gentleman. 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 Unfortunately, since that time, he has continued to have pain, which is problematic. He feels that his medications are helpful. He still has pain, which can be problematic. It compromises his ability to do his job. He does feel like he is tired in the evening. He continues to have some migraine headaches. He would like to continue with his medications. ALLERGIES: No known drug allergies. CURRENT MEDICATIONS: Oxycodone 10 mg, morphine extended release 15 mg, meloxicam 15 mg, gabapentin 400 mg t.i.d., amitriptyline 10 mg at bedtime, Zyrtec 10 mg, Emgality 120 mg injection subcutaneously monthly for migraines, p.r.n. use of Naprosyn 220 mg, Imitrex 50 mg p.r.n. headaches. PAIN CLINIC ASSESSMENT AND PQRS: 1. The patient is not being treated for rheumatoid arthritis. He is not being treated for osteoarthritis. 2. Height 5 feet 5 inches, weight 202 pounds, BMI is 36.0. 3. Vital Signs: Blood pressure 126/84, pulse 71, respiratory rate 14, room air saturation 97%. 4. Pain intensity, 05/28. 5. Fall history. The patient has not fallen since we saw him last. 6. Blood thinner. The patient is not on a blood thinning medication. 7. Hypertension. The patient is not being treated for hypertension. 8. Opioids greater than 6 weeks. The patient receives medication from the pain clinic. 9. Risk assessment tool, low for opioid use. 10. Functional assessment tool, 59/70. 11. Recreational drug use. The patient denies. 12. Tobacco. The patient has never smoked. 13. Alcohol. The patient denies frequent use of alcoholic beverages. [facility] [address] [place] [address] PAIN MANAGEMENT CONSULTATION Name: RANDALL CHARLES Room #: REG [facility]#: [id number] Admission: 10/31/19 Attend Phys: Enrico Mcguire MD Discharge: Date of : 66 Report #: [id number] PHYSICAL EXAMINATION: GENERAL: The patient is a well-developed, well-nourished, white male. Appears his stated age. He is alert and oriented x 3. His affect is appropriate. Speech is fluent. HEENT: Normocephalic, atraumatic. Extraocular eye muscles intact. Sclerae nonicteric. The patient has a facial covering. NECK: Without adenopathy or JVD. HEART: Regular rate. LUNGS: Clear. ABDOMEN: Nontender. MUSCULOSKELETAL: The patient has some pain in the mid portion of his back at about the L1-L2 level. There is discomfort in the left lateral side and near the paravertebral space. Notes some increased pain and discomfort with flexion, extension as well as left and right rotation. EXTREMITIES: Upper extremity muscle strength judged to be 5/5 for the major muscle groups in the upper extremity. Lower extremity muscle strength is 5/5. IMPRESSION: 1. Chronic pain, left lateral thoracic area, status post burst fracture at L2, treated with surgery in 2005. 2. Midline pain, left lower back at the L2-L3 area and in the paraspinous muscle area. 3. Migraine headaches. 4. Persistent leg numbness. RECOMMENDATIONS: We discussed treatment options with the patient. At this juncture, we will continue with his medications. A script for his medications have been renewed. He will continue with gabapentin 400 mg 1 p.o. t.i.d., OxyIR 10 mg 1 every 4-6 hours p.r.n., total of 90 tablets monthly, morphine sulfate extended release 15 mg 1 p.o. daily, meloxicam 15 mg 1 p.o. daily, Naprosyn 220 mg p.r.n., baclofen 10 mg 1 p.o. b.i.d., amitriptyline 2 tablets at bedtime. The patient will call us if he has any concerns. 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 His medications are not causing any problems with his mentation nor clouding his sensorium. He feels he is able to easily carry on his duties as a durable medical equipment repairer. <ELECTRONICALLY SIGNED> By: Enrico Mcguire MD 11/15/19 1325 [id number] Enrico Mcguire MD /CHRIS
== END ==
LOC: PAIN 06:50
PROVIDERS: ATTEND Anesthesiology Pain Medicine
DX: G89.29 Other chronic pain (principal); R20.2 Paresthesia of skin; Z87.81 Personal history of (healed) traumatic fracture; G43.009 Migraine without aura, not intractable, without status migrainosus; Z79.899 Other long term (current) drug therapy

== ENCOUNTER → 2019-11-28 | Outpatient (CLI) | payer BC, OTHER ==
[~2019-11-28] VITALS: Ht 167.6 cm; Wt 92.3 kg
[~2019-11-28] MED LIST changes: +ROXICODONE5 M2 PO
--- NOTE | ~2019-11-28 | HPC ---
[facility] [address] [place] [address] PAIN MANAGEMENT CONSULTATION Name: RANDALL CHARLES Room #: REG [facility].#: [id number] Admission: 11/28/19 Attend Phys: Enrico Mcguire MD Discharge: Date of : 66 Report #: [id number] THIS REPORT FOR: cc: Jose L Keyes MD, Neal A. MD Brown,Enrico Schilling MD ~ CC: Enrico Keyes DATE OF SERVICE: 11/28/2019 CHIEF COMPLAINT: Back pain. 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 As you may recall, he has had some chronic pain. He suffered a vertebral fracture at the L1 vertebral level in 2005. This pain has been chronic since then. 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 This makes it more problematic. He notes that his pain level can start at 2 in the morning and rise to a level of 9 by the time the day is over. He feels that his medications are helpful. He wishes they were more consistent in helping him control his pain. He has returned today for renewal of his medications. ALLERGIES: No known drug allergies. CURRENT MEDICATIONS: Oxycodone 10, morphine extended release 15 mg, meloxicam 15 mg, gabapentin 400 mg t.i.d., amitriptyline 10 mg at bedtime, Zyrtec 10 mg, Emgality 120 mg injection subQ for migraines, Naprosyn 220 mg, Imitrex 50 mg p.r.n. headaches. PAIN CLINIC ASSESSMENT/PQRS: 1. The patient is not being treated for rheumatoid arthritis. He is not being treated for osteoarthritis. 2. Height 5 feet 6 inches, weight 203 pounds, BMI is 32. 3. Vital signs: Blood pressure 149/90, pulse 87, respiratory rate 18, room air saturation 97%. 4. Pain intensity 2 now can rise to a level of 9 as the day progresses. 5. Fall history: The patient has not fallen in the last 3 months. 6. Blood thinner: The patient is not on a blood thinning medication. 7. Hypertension: The patient is not being treated for hypertension. 8. Opioids greater than 6 weeks: The patient receives medication from the pain clinic. 9. Risk assessment tool: Low for opioid use. 10. Functional assessment tool 59/70. 11. Recreational drug use: The patient denies. 12. Tobacco: The patient has never smoked. 13. Alcohol: The patient denies frequent use of alcoholic beverages. [address] [address] PAIN MANAGEMENT CONSULTATION Name: RANDALL CHARLES Room #: REG [facility]#: [id number] Admission: 11/28/19 Attend Phys: Enrico Mcguire MD Discharge: Date of : 66 Report #: [id number] PHYSICAL EXAMINATION: GENERAL: The patient is a well-developed, well-nourished white male. Appears his stated age. He is alert and oriented x 3. His affect is appropriate. Speech is fluent. HEENT: Normocephalic, atraumatic. Extraocular eye muscles intact. Sclerae nonicteric. Mucous membranes are moist. The patient has a facial covering in place. NECK: Without adenopathy or JVD. HEART: Regular rate. LUNGS: Clear. ABDOMEN: Nontender mid thoracic back pain. The patient notes some pain and discomfort at the L1-L2 level. The patient has more discomfort in the paravertebral space at L1-L2. Notes some increased pain and discomfort with flexion, extension as well as left and right lateral rotation. EXTREMITIES: Upper extremity muscle strength judged to be 5/5 for the major muscle groups in the upper extremity. Lower extremity muscle strength judged to be 5/5 for the major muscle groups. IMPRESSION: 1. Chronic back pain in the left lateral thoracic area, status post burst fracture at L2 and surgery in 2005. 2. Midline pain. 3. Left low back pain in the L2-L3 areas as well as in the paraspinous area. 4. Migraine headaches. 5. Persistent leg numbness. RECOMMENDATIONS: We discussed treatment options with the patient. At this juncture, we will continue with the patient's current medical regimen. We will refill his medications. We discussed the medical regimen. We have explained the CDC guidelines in regards to opioid and morphine equivalents. At this juncture, we will continue with the patient's medication of amitriptyline. We will increase it to 25 mg at bedtime with the possibility of 2 tablets at bedtime, increasing it from 20 mg to 50 mg. He will also use baclofen 10 mg 3 times daily for muscle spasms. The patient will continue with gabapentin 400 mg t.i.d. He will continue with morphine ER 15 mg 1 p.o. b.i.d. He will also continue with oxycodone 5 mg 1 p.o. t.i.d. Hopefully, the patient will find that his pain medicines are more efficacious. He will call us if he has any concerns. We have discussed the risk of opioid medications. Some patients can become dependent and develop an addiction. The patient is not showing signs of addiction. He will call us if he has any concerns. We would like to thank you for letting us participate in his care. He does feel [address] [address] PAIN MANAGEMENT CONSULTATION Name: RANDALL CHARLES Room #: [facility]#: [id number] Admission: 11/28/19 Attend Phys: Enrico Mcguire MD Discharge: Date of : 66 Report #: [id number] that his medications are allowing him to continue to work in a good capacity. He is not noticing any clouding of his sensorium. By: [id number] Enrico Mcguire MD /PMT
[2019-11-28 08:49] VITALS: BP 149/90
--- NOTE | 2019-11-28 08:52 | NUR ---
Pain Clinic Assessment: 1. History of Osteoarthritis: NONE History of Rheumatoid Arthritis: NONE 2. Height: 5 ft. 6 in. 167.6 cm. Weight: 203.4 lb. oz. 92.262 kg. Patient's BMI: 32.8 3. Vital Signs: BP: 149/90 Pulse: 87 Resp: 18 Temp: 02 Sat: 97 ECG Mon: 4. Pain Intensity: 2 NOW , 9 TO START DAY 5. Fall Risk: Dizziness: Y Needs help standing or walking: N Fallen in the last 3 months: Y Fall risk comments: 6. Patient on Blood Thinner: None 7. History of Hypertension: N 8. Opioid Therapy greater than 6 weeks: Y Opiate Contract Signed: 01/25/18 9. Risk Assessment Tool Provided: LOW 10. Functional Assessment Tool: 59/ 11. Recreational Drug Use: Never Drug Type: Tobacco Use: Never Smoker Tobacco Type: Amount or Packs/day: How Many Years: Alcohol Use: No Frequency: Quant:
== END ==
LOC: PAIN 06:48
PROVIDERS: ATTEND Anesthesiology Pain Medicine
DX: M54.6 Pain in thoracic spine (principal); M54.5 Low back pain; G43.909 Migraine, unspecified, not intractable, without status migrainosus; R20.0 Anesthesia of skin; I10 Essential (primary) hypertension; F11.90 Opioid use, unspecified, uncomplicated; M06.9 Rheumatoid arthritis, unspecified

== ENCOUNTER → 2019-12-26 | Outpatient (CLI) | payer BC, OTHER ==
[~2019-12-26] VITALS: Ht 167.6 cm; Wt 93.4 kg
--- NOTE | ~2019-12-26 | HPC ---
[facility] [address] [place] [address] PAIN MANAGEMENT CONSULTATION Name: RANDALL CHARLES Room #: REG [facility] Urmila#: [id number] Admission: 12/26/19 Attend Phys: Enrico Mcguire MD Discharge: Date of : 66 Report #: [id number] CC: Enrico Keyes DATE OF SERVICE: 12/26/2019 CHIEF COMPLAINT: Here for medication renewal, still having back pain. HISTORY: The patient is a 49-year-old gentleman who has been followed in the pain clinic because of chronic back pain. As you may recall, he suffered some trauma to his back in the past. It started in 2017. He is having pain in the low back area at this juncture. He feels his medications were not as effective as they had been. 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 This can be taxing and exacerbates his pain. Rates his pain as a 2 at this juncture. Notes that walking, standing, sitting too much, bending can exacerbate the pain. Feels his medications are helpful. Rest is helpful. He has had cold laser therapy. He tries to say "on top of the pain before it becomes problematic." He feels that the medication has begun to wane earlier. ALLERGIES: No known drug allergies. CURRENT MEDICATIONS: Oxycodone 10 mg, morphine extended release 15 mg, meloxicam 15 mg, gabapentin 400 mg t.i.d., amitriptyline 10 mg at bedtime, Zyrtec 10 mg, Emgality 120 mg injection subcutaneously for migraines, Naprosyn 220 mg, Imitrex 50 mg p.r.n. headaches. PAIN CLINIC ASSESSMENT AND PQRS: 1. The patient is not being treated for rheumatoid arthritis. He does have some arthritic changes in his back as a result of trauma to the L1 vertebral body, which occurred in 2005. 2. Height 5 feet 6 inches, weight 206 pounds, BMI is 33. 3. Vital Signs: Blood pressure 113/72, pulse 81, respiratory rate 14, room air saturation 95%. 4. Pain intensity 2 at this juncture, can increase to a higher level as the day progresses. 5. Fall history. The patient has not fallen in the last 3 months. 6. Blood thinner. The patient is not on a blood thinning medication. 7. Hypertension. The patient is using lisinopril. 8. Opioids greater than 6 weeks. The patient receives medication from the pain clinic. 9. Risk assessment tool, low for opioid use. 10. Functional assessment tool, 59/70. 11. Recreational drug use, the patient denies. 12. Tobacco. The patient has never smoked. 13. Alcohol. The patient denies frequent use of alcoholic beverages. PHYSICAL EXAMINATION: GENERAL: The patient is a well-developed, well-nourished, white male. Appears his stated age. He is alert and oriented x 3. His affect is appropriate. Speech is fluent. HEENT: Normocephalic, atraumatic. Extraocular eye muscles intact. Sclerae nonicteric. The patient is wearing a facial covering. NECK: Without adenopathy or JVD. HEART: Regular rate. ABDOMEN: Nontender. LUNGS: Clear. MUSCULOSKELETAL: Upper extremity muscle strength judged to be 5/5 for the major muscle groups in the upper extremity. The patient has some pain and discomfort in the L1-L2 level. Notes some pain in the left and right L1-L2 paraspinous areas. Flexion and extension as well as left and right lateral rotation can increase his discomfort. Lower extremity muscle strength judged to be 5/5 for the major groups in the lower extremity. IMPRESSION: 1. Chronic low back pain in the left lateral thoracic area, status post burst fracture of L2 and surgery in 2005. 2. Midline pain. 3. Left low back pain in the L2-L3 areas as well as the paraspinous areas. 4. Migraine headaches. 5. Persistent leg numbness. RECOMMENDATIONS: We discussed treatment options with the patient. At this juncture, we will continue with his medications. We have discussed the limitations of opioid use per the CDC's recommendations. At this point, we will have the patient use amitriptyline 25 mg 2 tablets at bedtime. He will also continue with baclofen 10 mg 1 p.o. t.i.d. for muscle spasms. The patient will use gabapentin 300 mg 1 tablet in the morning, 1 tablet midday, and 2 tablets at bedtime. He will use nonsteroidal anti-inflammatory medication, meloxicam 15 mg 1 tablet daily. He will use MS Contin 15 mg 1 p.o. b.i.d. He will now return to use of Percocet 10 mg 1 p.o. t.i.d. as needed. We would like to thank you for letting us participate in his care. We hope he continues to improve. By: [id number] Enrico Mcguire MD /CHRIS
[2019-12-26 08:37] VITALS: BP 113/72
--- NOTE | 2019-12-26 08:56 | NUR ---
Pain Clinic Assessment: 1. History of Osteoarthritis: NONE History of Rheumatoid Arthritis: NONE 2. Height: 5 ft. 6 in. 167.6 cm. Weight: 206.0 lb. oz. 93.441 kg. Patient's BMI: 33.3 3. Vital Signs: BP: 113/72 Pulse: 81 Resp: 14 Temp: 02 Sat: 95 ECG Mon: 4. Pain Intensity: 2 NOW 5. Fall Risk: Dizziness: N Needs help standing or walking: N Fallen in the last 3 months: N Fall risk comments: 6. Patient on Blood Thinner: None 7. History of Hypertension: N 8. Opioid Therapy greater than 6 weeks: Y Opiate Contract Signed: 01/25/18 9. Risk Assessment Tool Provided: LOW 10. Functional Assessment Tool: / 11. Recreational Drug Use: Never Drug Type: Tobacco Use: Never Smoker Tobacco Type: Amount or Packs/day: How Many Years: Alcohol Use: No Frequency: Quant:
== END ==
LOC: PAIN 06:35
PROVIDERS: ATTEND Anesthesiology Pain Medicine
DX: M54.5 Low back pain (principal); G43.909 Migraine, unspecified, not intractable, without status migrainosus; R20.0 Anesthesia of skin; Z87.81 Personal history of (healed) traumatic fracture; G89.29 Other chronic pain; Z79.899 Other long term (current) drug therapy

== ENCOUNTER → 2020-01-30 | Outpatient (CLI) | payer BC, OTHER ==
[~2020-01-30] VITALS: Ht 167.6 cm; Wt 94.2 kg
[~2020-01-30] MED LIST changes: +AMITRIPTYLINE H50 M2 PO; +LISINOPRIL2.5 M1 PO; +VOLTAREN50 MG PO
[2020-01-30 08:39] VITALS: BP 131/93
--- NOTE | 2020-01-30 08:56 | NUR ---
Pain Clinic Assessment: 1. History of Osteoarthritis: NONE History of Rheumatoid Arthritis: NONE 2. Height: 5 ft. 6 in. 167.6 cm. Weight: 207.6 lb. oz. 94.167 kg. Patient's BMI: 33.5 3. Vital Signs: BP: 131/93 Pulse: 88 Resp: 16 Temp: 02 Sat: 96 ECG Mon: 4. Pain Intensity: 3 5. Fall Risk: Dizziness: N Needs help standing or walking: N Fallen in the last 3 months: N Fall risk comments: 6. Patient on Blood Thinner: None 7. History of Hypertension: N 8. Opioid Therapy greater than 6 weeks: Y Opiate Contract Signed: 01/25/18 9. Risk Assessment Tool Provided: LOW 10. Functional Assessment Tool: 59/ 11. Recreational Drug Use: Never Drug Type: Tobacco Use: Never Smoker Tobacco Type: Amount or Packs/day: How Many Years: Alcohol Use: No Frequency: Quant:
--- NOTE | 2020-02-01 08:20 | HPC ---
[facility] [address] [place] [address] PAIN MANAGEMENT CONSULTATION Name: RANDALL CHARLES [facility] [id number] Admission: 01/30/20 Attend Phys: Sosa Blanco Discharge: Date of : 66 Report #: [id number] THIS REPORT FOR: cc: Jose L Keyes MD, Neal A. MD Hocker, Amanda CNS ~ CC: Sosa Mcguire MD DATE OF SERVICE: 01/30/2020 CHIEF COMPLAINT: Chronic low back pain and thoracic pain. HISTORY OF PRESENT ILLNESS: This is a 49-year-old gentleman who has been following in the pain clinic for several months for his chronic back pain. He reports pain in the mid thoracic area that radiates into his lower back. It does not radiate into his legs. It is a pressure, twisting feeling with any movement and especially walking. 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 He does find that his pain medication regimen that we have him on with many adjunct medications has been beneficial, though he does report he has a fatty liver and would like to have oxycodone without Tylenol due to try and limit his amount of Tylenol intake. The patient does report he found Aleve as beneficial as the meloxicam and has stopped taking the meloxicam. Overall, today he is reporting a pain of 3/10. The patient also reports he has ongoing migraines that is being treated by another physician. He had recently been taking Emgality that was working well, but insurance is no longer covering that medication, so therefore his migraines have returned. ALLERGIES: No known drug allergies. CURRENT LIST OF MEDICATIONS: Morphine sulfate 15 mg b.i.d., oxycodone 10/325 t.i.d., gabapentin 400 mg 1 in the morning, 1 midday, 2 at night; baclofen 10 mg 3 times a day, amitriptyline 50 mg at bedtime, Zyrtec, Aleve, and Imitrex. PQRS: 1. The patient is not being treated for rheumatoid arthritis. He has arthritic changes in his spine. 2. Height is 5 feet 6 inches, weight is 207 and BMI is 33. 3. Vital signs 131/93, pulse is 88, respirations 16, oxygen sat is 96. 4. Pain score is 3/10. 5. Denies dizziness, does not need help walking or standing, has not fallen in the last 3 months. 6. The patient is not on any blood thinners or medicine for hypertension. 7. Opioid therapy is greater than 6 weeks; therefore, an opioid signed contract [address] [address] PAIN MANAGEMENT CONSULTATION Name: MELVINRANDALL H Room #: REG [facility] Kearns#: [id number] Admission: 01/30/20 Attend Phys: Sosa Blanco Discharge: Date of : 66 Report #: [id number] is on the chart. His risk assessment is low. Functional assessment is 59/70. 8. Recreational drug use, he denies. He is not a smoker and does not drink alcohol. According to the prescription monitoring system, the patient is filling appropriately for his medications, filling in a timely fashion. He is due to fill his medications today. His morphine mEq is 75 MMEs. There was a random drug screen that is appropriate for his medications as well. PHYSICAL EXAMINATION: GENERAL: This is alert and orientated, well-developed, well-nourished 49-year-old gentleman who appears his stated age, placing his pain score today at 3/10. HEENT: Normocephalic, atraumatic. Extraocular eye muscles are intact. Sclerae are nonintrinsic. He is wearing a mask. NECK: Without JVD or adenopathy. MUSCULOSKELETAL: The patient has discomfort in his L1-L2 level of his lower back and it is increased with flexion and extension as well as rotation. No radicular symptoms noted. His upper and lower extremity strength judged to be symmetrical at 5/5 with good sensation from L1-S2. IMPRESSION: 1. Chronic low back pain with left lateral thoracic area pain, status post burst fracture. 2. Low back pain as well as paraspinous musculature. 3. Migraine headaches. 4. Chronic opioid use requiring medications. We reviewed the fact that opiate medications are being used to provide analgesia adequate to support activities of daily living, not attempting to achieve a specific pain score on the 0-10 Visual Analog Scale. The current opiate medications are providing sufficient analgesia to allow the patient to participate in activities of daily living. The patient is not exhibiting any aberrant behavior suggestive of drug diversion. The patient is not having any adverse reactions to medications. The patient is not suffering from daytime somnolence or mental acuity changes. The patient is managing opiate-induced constipation with appropriate [id number] agents and dietary considerations. The patient was counseled on concern for caution with operating a motor vehicle while using opiate medications. A physical exam was performed and the patient's functional status was evaluated. All patients with back pain were advised against the bed rest greater than 4 days and were advised to return to normal activities. Pain score assessment was noted and the treatment plan was reviewed with the patient. All current medications, both prescribed and OTC were reviewed and reconciled on the electronic medical record. Tobacco screening was accomplished and smoking [facility] [address] [place] [address] PAIN MANAGEMENT CONSULTATION Name: RANDALL CHARLES Room [facility]: [facility] [id number] Admission: 01/30/20 Attend Phys: Sosa Blanco Discharge: Date of : 66 Report #: [id number] cessation was advised when indicated. BMI was noted and diet/exercise modification was recommended for all patients following outside normal parameters. I reviewed with the patient today their responsibilities to safeguard prescription medications, reviewed their responsibility to utilize medications only as prescribed by the physician. They are to seek and receive pain medications only from 1 physician group ( [facility]). They are to use 1 pharmacy and keep the clinic informed if they change pharmacies. Their responsibilities include making followup visits in a timely fashion and to avoid abrupt discontinuation of medication usage. Their responsibilities further include bringing their medications (bottles from the pharmacy with residual pills) to the visit for possible confirmation of pill counts and the patient understands it is their responsibility to submit to random drug screens to ensure both that the medications prescribed are present, and that no other controlled substances are present. All prescriptions provided today were generated electronically. RECOMMENDATIONS: 1. We discussed treatment options with the patient today. The patient would like to return to oxycodone with no acetaminophen. He reports he has a fatty liver and tries to limit his Tylenol intake. According to our records, Dr. Mcguire had him on OxyIR as previously and we will return to that medication. Scripts will be sent electronically today for 10 mg, #90, for 1 month as well as his morphine 15 mg b.i.d., #60. 2. The patient finds his baclofen and gabapentin very beneficial. I will renew his baclofen today 10 mg, #90 with 1 additional refill. He is not in need of his Neurontin today. 3. We did discuss his amitriptyline. The patient feels that 50 mg is beneficial in helping him sleep and helps with some of his pain. Scripts will be sent for 50 mg, #30 with 1 refill. 4. The patient feels his Aleve was more beneficial than meloxicam. I did discuss his migraine headaches with him as well as his anti-inflammatory use. We have found that some patients do well with diclofenac; it helps as an anti-inflammatory medication as well as migraine. We will rotate him to diclofenac sodium 50 mg b.i.d. The patient instructed to take 1 tablet twice a day as needed. 5. I did mention to the patient to discuss with his neurologist regarding his migraine medication, Emgality which is not covered by his insurance company. We have found Aimovig has been successful in the past, though it appears the patient has not tried Relpax or Maxalt. The patient may find those medications are beneficial and to discuss those with his physician. [address] [address] PAIN MANAGEMENT CONSULTATION Name: RANDALL CHARLES Room #: REG [facility] Kearns#: [id number] Admission: 01/30/20 Attend Phys: Sosa Blanco Discharge: Date of : 66 Report #: [id number] 9. The patient will return in 1 month. The patient is seen today in collaboration with Dr. Aquiles Mcguire. <ELECTRONICALLY SIGNED> By: Sosa Blanco 02/01/20 0820 [id number] [id number] Sosa Blanco /nt
== END ==
LOC: PAIN 06:47
PROVIDERS: ATTEND Clinical Nurse Specialist Adult Health
DX: M54.5 Low back pain (principal); M54.6 Pain in thoracic spine; G89.29 Other chronic pain; G43.009 Migraine without aura, not intractable, without status migrainosus; F11.20 Opioid dependence, uncomplicated

== ENCOUNTER → 2020-02-27 | Outpatient (CLI) | payer BC, OTHER ==
[~2020-02-27] VITALS: Ht 167.6 cm; Wt 95.7 kg
[~2020-02-27] MED LIST changes: +DICLOFENAC SODI50 MG PO; +NEURONTIN 400M400 M2 PO
[2020-02-27 08:48] VITALS: BP 128/95
--- NOTE | 2020-02-27 08:55 | NUR ---
Pain Clinic Assessment: 1. History of Osteoarthritis: NONE History of Rheumatoid Arthritis: NONE 2. Height: 5 ft. 6 in. 167.6 cm. Weight: 211.0 lb. oz. 95.709 kg. Patient's BMI: 34.1 3. Vital Signs: BP: 128/95 Pulse: 85 Resp: 16 Temp: 02 Sat: 97 ECG Mon: 4. Pain Intensity: 2 TO 3 5. Fall Risk: Dizziness: N Needs help standing or walking: N Fallen in the last 3 months: N Fall risk comments: 6. Patient on Blood Thinner: None 7. History of Hypertension: Y 8. Opioid Therapy greater than 6 weeks: Y Opiate Contract Signed: 01/25/18 9. Risk Assessment Tool Provided: LOW 10. Functional Assessment Tool: / 11. Recreational Drug Use: Never Drug Type: Tobacco Use: Never Smoker Tobacco Type: Amount or Packs/day: How Many Years: Alcohol Use: No Frequency: Quant:
--- NOTE | 2020-02-27 15:11 | HPC ---
[facility] [address] [place] [address] PAIN MANAGEMENT CONSULTATION Name: RANDALL CHARLES [facility]: [facility] [id number] Admission: 02/27/20 Attend Phys: Sosa Blanco Discharge: Date of : 66 Report #: [id number] THIS REPORT FOR: cc: Jose L Keyes MD, Neal A. MD Hocker,Sosa LY ~ DATE OF SERVICE: 02/27/2020 CHIEF COMPLAINT: Chronic low back pain and thoracic pain. HISTORY OF PRESENT ILLNESS: This is a pleasant 49-year-old gentleman who returns to the pain clinic today for refill of his medications. The patient does report that his pain is better controlled since we have added the diclofenac. He feels that he is less aches and pains throughout his body than he had prior to taking that medication. Today, he is reporting a pain score of 2-3. His most problematic area is his low back, though he does continue to have thoracic pain as well. It is a pressure with movement and twisting. Overall, he feels like he is doing quite well on his current regimen and would like to continue. The patient does report some difficulty feeling "wired" at night and having difficulty falling asleep. He is unsure if this is related to his medication. He has been taking his same doses for several months with no change. He does not recall any caffeine before bedtime that may be causing this issue. ALLERGIES: No known drug allergies. CURRENT LIST OF MEDICATIONS: OxyIR 10 mg t.i.d., MS Contin 15 mg b.i.d., diclofenac 50 mg b.i.d., baclofen, amitriptyline, lisinopril, gabapentin, Zyrtec and Imitrex. PQRS: 1. He has arthritic changes in his spine. Denies any rheumatoid arthritis. 2. Height is 5 feet 6 inches, weight is 211, BMI is 34. 3. Vital signs; blood pressure 128/95, pulse is 85, respirations 16, oxygen sat is 97. 4. Pain score is 2-3. 5. Denies dizziness, does not need help walking or standing, has not fallen in the last 3 months. 6. The patient is not on any blood thinners, but does take medicine for hypertension. His opioid therapy is greater than 6 weeks; therefore, an opioid signed contract is on the chart. Risk assessment is low. Functional assessment is 59/70. 7. Recreational drug use, he denies. He is not a smoker [place] [address] PAIN MANAGEMENT CONSULTATION Name: RANDALL CHARLES Room #: REG [facility] Urmila#: [id number] Admission: 02/27/20 Attend Phys: Sosa Blanco Discharge: Date of : 66 Report #: [id number] According to the prescription monitoring system, the patient is filling appropriately. He is due to fill his medications today, filling them in a timely fashion. His morphine milliequivalent is 75 MME. PHYSICAL EXAMINATION: GENERAL: This is alert and orientated 49-year-old gentleman who appears his stated age, placing his current pain score at 2-3. HEENT: Normocephalic, atraumatic. Extraocular eye muscles are intact. Speech is fluent. He is wearing a mask today. NECK: Without adenopathy or JVD. MUSCULOSKELETAL: Discomfort in his L1-L2 area of his lumbar spine. Pain is increased with flexion, extension and rotation. No radicular symptoms noted today. His upper and lower extremity strength are symmetrical at 5/5. IMPRESSION: 1. Chronic low back pain with left lateral thoracic pain, status post burst fracture. 2. Low back pain. 3. Migraine headaches. 4. Chronic opioid use requiring medications. We reviewed the fact that opiate medications are being used to provide analgesia adequate to support activities of daily living, not attempting to achieve a specific pain score on the 0-10 Visual Analog Scale. The current opiate medications are providing sufficient analgesia to allow the patient to participate in activities of daily living. The patient is not exhibiting any aberrant behavior suggestive of drug diversion. The patient is not having any adverse reactions to medications. The patient is not suffering from daytime somnolence or mental acuity changes. The patient is managing opiate-induced constipation with appropriate bwmn-nsf-qfanail agents and dietary considerations. The patient was counseled on concern for caution with operating a motor vehicle while using opiate medications. A physical exam was performed and the patient's functional status was evaluated. All patients with back pain were advised against the bed rest greater than 4 days and were advised to return to normal activities. Pain score assessment was noted and the treatment plan was reviewed with the patient. All current medications, both prescribed and OTC were reviewed and reconciled on the electronic medical record. Tobacco screening was accomplished and smoking cessation was advised when indicated. BMI was noted and diet/exercise modification was recommended for all patients following outside normal parameters. I reviewed with the patient today their responsibilities to safeguard prescription medications, reviewed their responsibility to utilize medications only as prescribed by the physician. They are to seek and receive pain [address] [address] PAIN MANAGEMENT CONSULTATION Name: RANDALL CHARLES Room #: REG [facility]#: [id number] Admission: 02/27/20 Attend Phys: Sosa Blanco Discharge: Date of : 66 Report #: [id number] medications only from 1 physician group ( [facility]). They are to use 1 pharmacy and keep the clinic informed if they change pharmacies. Their responsibilities include making followup visits in a timely fashion and to avoid abrupt discontinuation of medication usage. Their responsibilities further include bringing their medications (bottles from the pharmacy with residual pills) to the visit for possible confirmation of pill counts and the patient understands it is their responsibility to submit to random drug screens to ensure both that the medications prescribed are present, and that no other controlled substances are present. All prescriptions provided today were generated electronically. PLAN: 1. We discussed treatment options with the patient today. The patient does feel that the medications have been beneficial and feels diclofenac has helped general aches and pains. Denies any GI issues with taking that medication. We reminded him to take this with food at all times. We will continue him on his morphine sulfate 15 mg b.i.d., and OxyIR 10 mg t.i.d., #90. These will be sent electronically by Dr. Mcguire for 1 month to his pharmacy. 2. I will continue his amitriptyline 50 mg, #30 with 2 additional refills, baclofen 10 mg t.i.d., #90 with 2 refills and diclofenac sodium 50 mg b.i.d., #60 with 2 refills and his gabapentin 400, #120 with 2 additional refills. 3. We did discuss sleep issues with the patient. I encouraged him to try melatonin 5-10 mg at bedtime to see if that is beneficial in helping him fall asleep. 4. The patient will return in 1 month. The patient is seen today in collaboration with Dr. Aquiles Mcguire. <ELECTRONICALLY SIGNED> By: Sosa Blanco 02/27/20 1511 [id number] [id number] Sosa Blanco /oniel
== END ==
LOC: PAIN 06:45
PROVIDERS: ATTEND Clinical Nurse Specialist Adult Health
DX: M54.6 Pain in thoracic spine (principal); G89.29 Other chronic pain; G43.909 Migraine, unspecified, not intractable, without status migrainosus; Z79.891 Long term (current) use of opiate analgesic; Z79.899 Other long term (current) drug therapy

== ENCOUNTER → 2020-03-26 | Outpatient (CLI) | payer BC, OTHER ==
[~2020-03-26] VITALS: Ht 167.6 cm; Wt 96.2 kg
[2020-03-26 08:46] VITALS: BP 145/93
--- NOTE | 2020-03-26 08:53 | NUR ---
Pain Clinic Assessment: 1. History of Osteoarthritis: NONE History of Rheumatoid Arthritis: NONE 2. Height: 5 ft. 6 in. 167.6 cm. Weight: 212.0 lb. oz. 96.163 kg. Patient's BMI: 34.2 3. Vital Signs: BP: 145/93 Pulse: 18 Resp: 79 Temp: 02 Sat: 97 ECG Mon: 4. Pain Intensity: 3 5. Fall Risk: Dizziness: N Needs help standing or walking: N Fallen in the last 3 months: N Fall risk comments: 6. Patient on Blood Thinner: None 7. History of Hypertension: Y 8. Opioid Therapy greater than 6 weeks: Y Opiate Contract Signed: 01/25/18 9. Risk Assessment Tool Provided: LOW-0 10. Functional Assessment Tool: 11. Recreational Drug Use: Never Drug Type: Tobacco Use: Never Smoker Tobacco Type: Amount or Packs/day: How Many Years: Alcohol Use: No Frequency: Quant:
--- NOTE | 2020-03-26 13:25 | HPC ---
[facility] [address] [place] [address] PAIN MANAGEMENT CONSULTATION Name: RANDALL CHARLES Room #: REG [facility].#: [id number] Admission: 03/26/20 Attend Phys: Sosa Blanco Discharge: Date of : 66 Report #: [id number] THIS REPORT FOR: cc: Jose L Keyes MD, Neal A. MD Hocker,Sosa LY ~ DATE OF SERVICE: 03/26/2020 CHIEF COMPLAINT: Chronic thoracic and low back pain. HISTORY OF PRESENT ILLNESS: This is a pleasant 49-year-old gentleman who returns to the pain clinic today for refill of his medications. He is reporting a pain score of 3/10 stating that the current regimen that he is on through our clinic has been very beneficial in controlling his pain. 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 He states that most problematic area is in the low back, but though his thoracic area does cause him discomfort at times, especially when he has twisting motions. He denies issues of constipation or daytime somnolence as a result of his medications. The patient has started taking melatonin 10 mg at bedtime since our last visit. He reports that occasionally some nights he still has problems sleeping, but has found that beneficial. ALLERGIES: No known drug allergies. CURRENT LIST OF MEDICATIONS: OxyIR 10 mg t.i.d. p.r.n., morphine sulfate 15 mg b.i.d., gabapentin 400 mg, amitriptyline, diclofenac sodium, baclofen, lisinopril, Zyrtec, Imitrex and melatonin. PQRS: 1. He has arthritic changes in his spine. Denies rheumatoid arthritis. 2. Height is 5 feet 6 inches, weight is 212, BMI is 34. Vital Signs: 145/93, pulse is 18, respirations 79, oxygen sat is 97%. 3. Pain score 3/10. Fall risk. Denies dizziness, does not need help walking or standing, has not fallen in the last 3 months. 4. The patient is not on any blood thinners, but does take medicine for hypertension. 5. Opioid therapy is greater than 6 weeks; therefore, an opioid signed contract is on the chart. Risk assessment is low. Functional assessment is 67/70. 6. Recreational drug use, he denies. He is not a smoker and does not drink alcohol. According to the prescription monitoring system, his morphine mEq is 75. He is due to fill these medications today, filling them in a timely fashion. The drug screen on the chart is appropriate for his medications as well. [address] [address] PAIN MANAGEMENT CONSULTATION Name: RANDALL CHARLES Room #: REG [facility] Urmila#: [id number] Admission: 03/26/20 Attend Phys: Sosa Blanco Discharge: Date of : 66 Report #: [id number] PHYSICAL EXAMINATION: GENERAL: This is alert and orientated 49-year-old gentleman who appears his stated age, placing his current pain score at 3/10. HEENT: Normocephalic, atraumatic. Extraocular eye muscles are intact. He is wearing a mask. Sclerae are nonintrinsic. NECK: Without adenopathy or JVD. MUSCULOSKELETAL: Pain is increased with flexion, extension and rotation of the lumbar spine. No radicular symptoms noted today. His upper and lower extremity strength and muscle tone are symmetrical at 5/5. IMPRESSION: 1. Chronic low back pain, left lateral thoracic pain, status post burst fracture. 2. Low back pain. 3. Migraine headaches. 4. Chronic opioid medications under written agreement. We reviewed the fact that opiate medications are being used to provide analgesia adequate to support activities of daily living, not attempting to achieve a specific pain score on the 0-10 Visual Analog Scale. The current opiate medications are providing sufficient analgesia to allow the patient to participate in activities of daily living. The patient is not exhibiting any aberrant behavior suggestive of drug diversion. The patient is not having any adverse reactions to medications. The patient is not suffering from daytime somnolence or mental acuity changes. The patient is managing opiate-induced constipation with appropriate [id number] agents and dietary considerations. The patient was counseled on concern for caution with operating a motor vehicle while using opiate medications. PLAN: 1. We discussed treatment options with the patient today. The patient recently started taking melatonin 10 mg at bedtime and has found that beneficial in helping with his sleep. He will continue that along with his amitriptyline at bedtime. 2. We will refill his OxyIR 10 mg t.i.d., #90 and MS Contin 15 mg b.i.d., #60. These will be sent for [address] Aquiles Mcguire to his pharmacy and the patient will follow up in 1 month. 3. He is not needing refills of any of his adjunct medications that we prescribed for him this month. 4. The patient is seen in collaboration with Dr. Mcguire. <ELECTRONICALLY SIGNED> By: Sosa Blanco 03/26/20 [id number] Sosa Blanco /nt
== END ==
LOC: PAIN 06:44
PROVIDERS: ATTEND Clinical Nurse Specialist Adult Health
DX: M54.5 Low back pain (principal); G89.29 Other chronic pain; G43.909 Migraine, unspecified, not intractable, without status migrainosus; F11.20 Opioid dependence, uncomplicated

== ENCOUNTER → 2020-04-23 | Outpatient (CLI) | payer BC, OTHER ==
[~2020-04-23] VITALS: Ht 167.6 cm; Wt 97.0 kg
[~2020-04-23] MED LIST changes: +AMITRIPTYLINE H75 M1 PO
[2020-04-23 08:48] VITALS: BP 129/89
[2020-04-23 08:52] VITALS: BP 129/89
--- NOTE | 2020-04-23 09:03 | NUR ---
Pain Clinic Assessment: 1. History of Osteoarthritis: NONE History of Rheumatoid Arthritis: NONE 2. Height: 5 ft. 6 in. 167.6 cm. Weight: 213.8 lb. oz. 96.979 kg. Patient's BMI: 34.5 3. Vital Signs: BP: 129/89 Pulse: 79 Resp: 20 Temp: 02 Sat: 98 ECG Mon: 4. Pain Intensity: 2 5. Fall Risk: Dizziness: N Needs help standing or walking: N Fallen in the last 3 months: N Fall risk comments: 6. Patient on Blood Thinner: None 7. History of Hypertension: Y 8. Opioid Therapy greater than 6 weeks: Y Opiate Contract Signed: 01/25/18 9. Risk Assessment Tool Provided: LOW-0 10. Functional Assessment Tool: / 11. Recreational Drug Use: Never Drug Type: Tobacco Use: Never Smoker Tobacco Type: Amount or Packs/day: How Many Years: Alcohol Use: No Frequency: Quant:
== END ==
LOC: PAIN 06:47
PROVIDERS: ATTEND Anesthesiology Pain Medicine
DX: M54.5 Low back pain (principal); G89.29 Other chronic pain; G43.909 Migraine, unspecified, not intractable, without status migrainosus; R20.2 Paresthesia of skin; Z88.8 Allergy status to other drugs, medicaments and biological substances; Z79.899 Other long term (current) drug therapy